=== PATIENT | female | born 1985 ===

== ENCOUNTER 2017-12-04 06:52 | Inpatient (IN) | payer OTHER ==
[~2017-12-04] VITALS: Ht 154.9 cm; Wt 66.7 kg
[~2017-12-04 06:52] MED LIST: LEVOTHYROXINE50 MCG PO; MOTRIN 800MG T800 MG PO; PRENATAL TABLE1 EAC2 PO
--- NOTE | 2017-12-04 09:21 | History & Physical ---
General Information and HPI MD Statement: I have seen and personally examined WESTON MON and documented this H&P. The patient is a 32 year old female at 39 weeks and 2 days gestation who presented with a chief complaint of contractions since 0500 on 12/04/17. Source of Information: patient Exam Limitations: no limitations History of Present Illness: Patient is a 32 year old at term with contractions. 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 Home Who Do You Live With? spouse, child Primary Language: Turkmen Smoking Status: Never Smoked ETOH Use: denies use Illicit Drug Use: denies illicit drug use Living Will? 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 EENTM: Denies: no symptoms. Cardiovascular: Denies: no symptoms. Respiratory: Denies: no symptoms. GI: Denies: no symptoms. Genitourinary: Denies: no symptoms. Musculoskeletal: Denies: no symptoms. Skin: Denies: no symptoms. Neurological/Psychological: Denies: no symptoms. Hematologic/Endocrine: Denies: no symptoms. Immunologic/Allergic: Denies: no symptoms. All Other Systems: Reviewed and Negative Date of LMP: 03/04/17 Post Menopausal: No Date of Last Pap Smear: 11/27/16 Exam & Diagnostic Data Last 24 Hrs of Vital Signs/I&O Intake & Output 12/04 1600 12/04 0800 12/04 0000 Intake Total Output Total Balance Patient 66.678 kg Weight Obstetric Exam Wgt Gained During : 26 Pelvimetry: Gynecoid Dilation (cm): 4 Effacement (%): 50 Station: -2 Membranes: intact Fluid: Intact Fundal Height (cm): 38 Multiple Gestation? No Contractions: Q2-4 #1 - FHR Baseline: 140 Category: 1 Estimated Weight: 2800 grams Presentation: Cephalic Patient for Induction? No Physical Exam General Appearance Alert, Oriented X3, Cooperative, Moderate Distress Skin No Rashes HEENT Atraumatic Neck Supple Cardiovascular Regular Rate Lungs Normal Air Movement Abdomen Soft Neurological Normal Gait, Normal Speech, Strength at 5/5 X4 Ext, Normal Tone, Sensation Intact Extremities No Edema Vascular Normal Pulses Breasts Breast appear nl Labs Blood Type & Rh: A negative Antibody Screen: negative Hct/Hgb & Platelets #1: WNL Hct/Hgb & Platelets #2: 34.1 Rubella: Immune VDRL #1: negative VDRL #2: negative HbsAg: negative HIV #1: negative HIV #2 negative 1 Hr PG: normal 3 Hr PG: NA Group B Strep: negative Initial Ultrasound: wnl Anatomy Ultrasound: wnl level 2 Ultrasound for EFW: 2.187 grams at 34 weeks Genetic Testing: Negative Panorama Last 24 Hrs of Labs/Martin: Laboratory Tests 12/04/17 0750: CBC w Diff Pending, WBC Pending, RBC Pending, Hgb Pending, Hct Pending, MCV Pending, MCH Pending, MCHC Pending, RDW Pending, Plt Count Pending, MPV Pending 12/04/17 0715: Membrane Rupture NEGATIVE Assessment/Plan Assessment/Plan: 32 year old female at term in early labor. Thyroid is controlled GBBS negative Declines pain management at present Catagory 1 tracing Follow labor curve Rh negative s/p rhogam Anticipate vaginal As Ranked By This Provider Problem List: 1. Hypothyroidism affecting Core Measures Venous Thromboembolism VTE Risk Factors / No Mechanical VTE Prophylaxis d/t N/A MechProphylax Ordered No VTE Pharm Prophylaxis d/t NA PharmProphylax ordered
--- NOTE | 2017-12-04 09:27 | Labor & Delivery Summary ---
Delivery Summary Vaginal Delivery: Vaginal: vertex Episiotomy/Lacerations: Episiotomy/Lacerations: 2nd degree laceration Type: 2nd degree laceration fourchette Repair: 3-0 vicryl Anesthesia: 2% sensorcaine Placenta: Placenta: spontanteous, normal, 3 vessel, SGA appearing Anesthesia: Local Cord PH Value: NA Baby's Weight: 3005 Apgars - 1 Min: 9 Apgars - 5 Min: 9 Additional Comments: Right shoulder anterior Shoulders passed spontaneously Given to mother on abdomen partner cut cord placenta passed spontaneously rectum intact vagina inspected and laceration only in the fourchette oxytocin for uterine tonus given EBL 300 cc
[2017-12-04 10:16] LABS: ABSOLUTE BASOPHIL COUNT 0 /CUMM (0.0-0.2); ABSOLUTE EOSINOPHIL COUNT 0 /CUMM (0.0-0.7); ABSOLUTE GRANULOCYTE CT 9.5 /CUMM (1.4-6.5); ABSOLUTE LYMPH COUNT 1.1 /CUMM (1.2-3.4); ABSOLUTE MONOCYTE COUNT 0.9 /CUMM (0.10-0.60); BASOPHIL % 0.2 % (0.0-2.0); EOSINOPHIL % 0.2 % (0-5); GRANULOCYTE % 82.9 % (42.2-75.2); HEMATOCRIT 36.6 % (37-47); MEAN CORPUSCULAR HGB 30.8 PG (27.0-31.0); MEAN CORPUSCULAR HGB CONC 33.4 G/DL (33.0-37.0); MEAN CORPUSCULAR VOLUME 92.3 FL (81.0-99.0); MEAN PLATELET VOLUME 8.3 FL (7.4-10.4); PLATELET COUNT 197 /CUMM (130-400); RBC DISTRIBUTION WIDTH 13.9 % (11.5-14.5); RED BLOOD CELL CT 3.97 /CUMM (4.20-5.40); WHITE BLOOD CELL COUNT 11.5 /CUMM (4.8-10.8)
[2017-12-05 08:19] LABS: ABSOLUTE BASOPHIL COUNT 0 /CUMM (0.0-0.2); ABSOLUTE EOSINOPHIL COUNT 0.1 /CUMM (0.0-0.7); ABSOLUTE GRANULOCYTE CT 8.6 /CUMM (1.4-6.5); ABSOLUTE LYMPH COUNT 1.6 /CUMM (1.2-3.4); ABSOLUTE MONOCYTE COUNT 0.8 /CUMM (0.10-0.60); BASOPHIL % 0.1 % (0.0-2.0); EOSINOPHIL % 0.7 % (0-5); GRANULOCYTE % 77.5 % (42.2-75.2); HEMATOCRIT 33.7 % (37-47); MEAN CORPUSCULAR HGB CONC 33.5 G/DL (33.0-37.0); MEAN CORPUSCULAR VOLUME 92.3 FL (81.0-99.0); MEAN PLATELET VOLUME 8.2 FL (7.4-10.4); PLATELET COUNT 162 /CUMM (130-400); RBC DISTRIBUTION WIDTH 14.2 % (11.5-14.5); RED BLOOD CELL CT 3.65 /CUMM (4.20-5.40); WHITE BLOOD CELL COUNT 11.1 /CUMM (4.8-10.8)
--- NOTE | 2017-12-05 09:17 | PN- OBGYN ---
Surgical Brief Attending Note Brief Attending Note: Seen and evaluated Breast feeding without issue and bonding with baby Soreness to vaginal area improved with local agents (tucks, dermaplast). Vitals per paper record Hct 33 Meds: Synthroid PPD#1 s/p vaginal Continue synthroid Rhogam was ordered. DC planning for 12/06/17
[2017-12-06] MEDS ORDERED: IBUPROFEN800 M1 PO (08:41)
== END 2017-12-06 15:00 | DRG 775 ==
LOC: CBCO 06:52 → GNO 07:25
PROVIDERS: Obstetrics & Gynecology
PROC: 10E0XZZ Delivery of Products of Conception, External Approach (ICD-10-PCS; principal; 2017-12-04)
PROC: 0KQM0ZZ Repair Perineum Muscle, Open Approach (ICD-10-PCS; principal; 2017-12-04)
DX: O70.1 Second degree perineal laceration during delivery (principal); Z37.0 Single live birth; E03.9 Hypothyroidism, unspecified; Z3A.39 39 weeks gestation of pregnancy; O99.284 Endocrine, nutritional and metabolic diseases complicating childbirth
CPT/HCPCS: GNOS; 36415; 81001; 84112; 86920; 86922; 88307; J2790; J7120